=== PATIENT | male | born 1970 | race Hispanic/Latino ===

== ENCOUNTER 2020-11-01 08:34 | Outpatient (CLI) | payer BC, OTHER | END 2020-11-01 08:35 | disposition home or self-care (01) | LOC: CSHWCC 08:34 | PROVIDERS: ATTEND Nurse Practitioner Family | DX: E11.621 Type 2 diabetes mellitus with foot ulcer (principal); L97.518 Non-pressure chronic ulcer of other part of right foot with other specified severity | CPT/HCPCS: 36416; G0277 ==

== ENCOUNTER 2020-11-06 07:42 | Outpatient (CLI) | payer BC, OTHER | END 2020-11-06 07:43 | disposition home or self-care (01) | LOC: CSHWCC 07:42 | PROVIDERS: ATTEND Nurse Practitioner Family | DX: T81.89XD Other complications of procedures, not elsewhere classified, subsequent encounter (principal); E11.621 Type 2 diabetes mellitus with foot ulcer; L97.518 Non-pressure chronic ulcer of other part of right foot with other specified severity; E11.40 Type 2 diabetes mellitus with diabetic neuropathy, unspecified; E78.2 Mixed hyperlipidemia; I10 Essential (primary) hypertension; I70.203 Unspecified atherosclerosis of native arteries of extremities, bilateral legs; I87.2 Venous insufficiency (chronic) (peripheral); L03.818 Cellulitis of other sites; W45.8XXD Other foreign body or object entering through skin, subsequent encounter | CPT/HCPCS: 36416; 97605; 99213; G0277; G0463 ==

== ENCOUNTER 2020-11-13 09:51 | Outpatient (CLI) | payer BC, OTHER | END 2020-11-13 09:52 | disposition home or self-care (01) | LOC: CSHWCC 09:51 | PROVIDERS: ATTEND Nurse Practitioner Family | DX: E11.621 Type 2 diabetes mellitus with foot ulcer (principal); L97.518 Non-pressure chronic ulcer of other part of right foot with other specified severity | CPT/HCPCS: 36416; G0277 ==

== ENCOUNTER 2020-11-14 11:09 | Outpatient (CLI) | payer BC, OTHER | END 2020-11-14 11:10 | disposition home or self-care (01) | LOC: CSHWCC 11:09 | PROVIDERS: ATTEND Nurse Practitioner Family | DX: E11.621 Type 2 diabetes mellitus with foot ulcer (principal); L97.518 Non-pressure chronic ulcer of other part of right foot with other specified severity | CPT/HCPCS: 36416; G0277 ==

== ENCOUNTER 2020-11-19 08:07 | Outpatient (CLI) | payer BC, OTHER | END 2020-11-19 08:08 | disposition home or self-care (01) | LOC: CSHWCC 08:07 | PROVIDERS: ATTEND Nurse Practitioner Family | DX: E11.621 Type 2 diabetes mellitus with foot ulcer (principal); L97.518 Non-pressure chronic ulcer of other part of right foot with other specified severity | CPT/HCPCS: 11042; 11045; 36416; 97605; 99213; G0277; G0463 ==

== ENCOUNTER 2020-11-22 08:06 | Outpatient (CLI) | payer BC, OTHER | END 2020-11-22 08:07 | disposition home or self-care (01) | LOC: CSHWCC 08:06 | PROVIDERS: ATTEND Nurse Practitioner Family | DX: E11.621 Type 2 diabetes mellitus with foot ulcer (principal); L97.518 Non-pressure chronic ulcer of other part of right foot with other specified severity | CPT/HCPCS: 36416; 97605; 99213; G0277; G0463 ==

== ENCOUNTER 2020-11-26 07:55 | Outpatient (CLI) | payer BC, OTHER | END 2020-11-26 07:56 | disposition home or self-care (01) | LOC: CSHWCC 07:55 | PROVIDERS: ATTEND Nurse Practitioner Family | DX: T81.89XD Other complications of procedures, not elsewhere classified, subsequent encounter (principal); I87.2 Venous insufficiency (chronic) (peripheral); E11.621 Type 2 diabetes mellitus with foot ulcer; L97.518 Non-pressure chronic ulcer of other part of right foot with other specified severity; E11.40 Type 2 diabetes mellitus with diabetic neuropathy, unspecified; E11.51 Type 2 diabetes mellitus with diabetic peripheral angiopathy without gangrene; I70.203 Unspecified atherosclerosis of native arteries of extremities, bilateral legs; L03.818 Cellulitis of other sites; E78.2 Mixed hyperlipidemia; W45.8XXD Other foreign body or object entering through skin, subsequent encounter | CPT/HCPCS: 36416; 97605; 99213; G0277; G0463 ==

== ENCOUNTER 2020-11-27 08:17 | Outpatient (CLI) | payer BC, OTHER | END 2020-11-27 08:18 | disposition home or self-care (01) | LOC: CSHWCC 08:17 | PROVIDERS: ATTEND Nurse Practitioner Family | DX: E11.621 Type 2 diabetes mellitus with foot ulcer (principal); L97.518 Non-pressure chronic ulcer of other part of right foot with other specified severity | CPT/HCPCS: 36416; G0277 ==

== ENCOUNTER 2020-11-29 08:07 | Outpatient (CLI) | payer BC, OTHER | END 2020-11-29 08:08 | disposition home or self-care (01) | LOC: CSHWCC 08:07 | PROVIDERS: ATTEND Nurse Practitioner Family | DX: E11.621 Type 2 diabetes mellitus with foot ulcer (principal); L97.518 Non-pressure chronic ulcer of other part of right foot with other specified severity | CPT/HCPCS: 36416; 99213; G0277; G0463 ==

== ENCOUNTER 2020-11-30 08:14 | Outpatient (CLI) | payer BC, OTHER | END 2020-11-30 08:15 | disposition home or self-care (01) | LOC: CSHWCC 08:14 | PROVIDERS: ATTEND Nurse Practitioner Family | DX: T81.89XD Other complications of procedures, not elsewhere classified, subsequent encounter (principal); I87.2 Venous insufficiency (chronic) (peripheral); E11.621 Type 2 diabetes mellitus with foot ulcer; L97.518 Non-pressure chronic ulcer of other part of right foot with other specified severity; E11.51 Type 2 diabetes mellitus with diabetic peripheral angiopathy without gangrene; E11.40 Type 2 diabetes mellitus with diabetic neuropathy, unspecified; E78.2 Mixed hyperlipidemia; I70.203 Unspecified atherosclerosis of native arteries of extremities, bilateral legs; L03.818 Cellulitis of other sites; W45.8XXD Other foreign body or object entering through skin, subsequent encounter | CPT/HCPCS: 36416; G0277 ==

== ENCOUNTER 2020-12-04 09:42 | Outpatient (CLI) | payer BC, OTHER | END 2020-12-04 09:43 | disposition home or self-care (01) | LOC: CSHWCC 09:42 | PROVIDERS: ATTEND Nurse Practitioner Family | DX: E11.621 Type 2 diabetes mellitus with foot ulcer (principal); L97.518 Non-pressure chronic ulcer of other part of right foot with other specified severity | CPT/HCPCS: 36416; 99213; G0277; G0463 ==

== ENCOUNTER 2020-12-05 08:16 | Outpatient (CLI) | payer BC, OTHER | END 2020-12-05 08:17 | disposition home or self-care (01) | LOC: CSHWCC 08:16 | PROVIDERS: ATTEND Nurse Practitioner Family | DX: E11.621 Type 2 diabetes mellitus with foot ulcer (principal); L97.518 Non-pressure chronic ulcer of other part of right foot with other specified severity | CPT/HCPCS: 36416; G0277 ==

== ENCOUNTER 2020-12-06 10:09 | Outpatient (CLI) | payer BC, OTHER | END 2020-12-06 10:10 | disposition home or self-care (01) | LOC: CSHWCC 10:09 | PROVIDERS: ATTEND Nurse Practitioner Family | DX: E11.621 Type 2 diabetes mellitus with foot ulcer (principal); L97.518 Non-pressure chronic ulcer of other part of right foot with other specified severity | CPT/HCPCS: 36416; G0277 ==

== ENCOUNTER 2020-12-07 08:04 | Outpatient (CLI) | payer BC, OTHER | END 2020-12-07 08:05 | disposition home or self-care (01) | LOC: CSHWCC 08:04 | PROVIDERS: ATTEND Nurse Practitioner Family | DX: E11.621 Type 2 diabetes mellitus with foot ulcer (principal); L97.518 Non-pressure chronic ulcer of other part of right foot with other specified severity | CPT/HCPCS: 36416; 99213; G0277; G0463 ==

== ENCOUNTER 2020-12-10 08:13 | Outpatient (CLI) | payer BC, OTHER | END 2020-12-10 08:14 | disposition home or self-care (01) | LOC: CSHWCC 08:13 | PROVIDERS: ATTEND Nurse Practitioner Family | DX: E11.621 Type 2 diabetes mellitus with foot ulcer (principal); L97.518 Non-pressure chronic ulcer of other part of right foot with other specified severity | CPT/HCPCS: 36416; G0277 ==

== ENCOUNTER 2020-12-11 08:05 | Outpatient (CLI) | payer BC, OTHER | END 2020-12-11 08:06 | disposition home or self-care (01) | LOC: CSHWCC 08:05 | PROVIDERS: ATTEND Nurse Practitioner Family | DX: E11.621 Type 2 diabetes mellitus with foot ulcer (principal); L97.518 Non-pressure chronic ulcer of other part of right foot with other specified severity | CPT/HCPCS: 36416; G0277 ==

== ENCOUNTER 2020-12-12 11:04 | Outpatient (CLI) | payer BC, OTHER | END 2020-12-12 11:05 | disposition home or self-care (01) | LOC: CSHWCC 11:04 | PROVIDERS: ATTEND Nurse Practitioner Family | DX: E11.621 Type 2 diabetes mellitus with foot ulcer (principal); L97.518 Non-pressure chronic ulcer of other part of right foot with other specified severity | CPT/HCPCS: 36416; G0277 ==

== ENCOUNTER 2020-12-13 11:18 | Outpatient (CLI) | payer BC, OTHER | END 2020-12-13 11:19 | disposition home or self-care (01) | LOC: CSHWCC 11:18 | PROVIDERS: ATTEND Nurse Practitioner Family | DX: T81.89XD Other complications of procedures, not elsewhere classified, subsequent encounter (principal); E11.621 Type 2 diabetes mellitus with foot ulcer; L97.518 Non-pressure chronic ulcer of other part of right foot with other specified severity; E78.2 Mixed hyperlipidemia; E11.40 Type 2 diabetes mellitus with diabetic neuropathy, unspecified; I10 Essential (primary) hypertension; I70.203 Unspecified atherosclerosis of native arteries of extremities, bilateral legs; I87.2 Venous insufficiency (chronic) (peripheral); L03.818 Cellulitis of other sites; W45.8XXD Other foreign body or object entering through skin, subsequent encounter | CPT/HCPCS: 36416; 99213; G0277; G0463 ==

== ENCOUNTER 2020-12-24 13:00 | Outpatient (CLI) | payer BC, OTHER | END 2020-12-24 13:01 | disposition home or self-care (01) | LOC: CSHWCC 13:00 | PROVIDERS: ATTEND Nurse Practitioner Family | DX: T81.89XD Other complications of procedures, not elsewhere classified, subsequent encounter (principal); E11.621 Type 2 diabetes mellitus with foot ulcer; L97.518 Non-pressure chronic ulcer of other part of right foot with other specified severity; E78.2 Mixed hyperlipidemia; I10 Essential (primary) hypertension; I70.203 Unspecified atherosclerosis of native arteries of extremities, bilateral legs; I87.2 Venous insufficiency (chronic) (peripheral); L03.818 Cellulitis of other sites; W45.8XXD Other foreign body or object entering through skin, subsequent encounter | CPT/HCPCS: 97605; 99213; G0463 ==

== ENCOUNTER 2020-12-27 13:06 | Outpatient (CLI) | payer BC, OTHER | END 2020-12-27 13:07 | disposition home or self-care (01) | LOC: CSHWCC 13:06 | PROVIDERS: ATTEND Nurse Practitioner Family | DX: T81.89XA Other complications of procedures, not elsewhere classified, initial encounter (principal); E11.621 Type 2 diabetes mellitus with foot ulcer; L97.518 Non-pressure chronic ulcer of other part of right foot with other specified severity; E11.40 Type 2 diabetes mellitus with diabetic neuropathy, unspecified; E78.2 Mixed hyperlipidemia; I10 Essential (primary) hypertension; I70.203 Unspecified atherosclerosis of native arteries of extremities, bilateral legs; I87.2 Venous insufficiency (chronic) (peripheral); L03.818 Cellulitis of other sites; W45.8XXA Other foreign body or object entering through skin, initial encounter | CPT/HCPCS: 97605; 99213; G0463 ==

== ENCOUNTER 2020-12-31 09:53 | Outpatient (CLI) | payer BC, OTHER | END 2020-12-31 09:54 | disposition home or self-care (01) | LOC: CSHWCC 09:53 | PROVIDERS: ATTEND Nurse Practitioner Family | DX: E11.621 Type 2 diabetes mellitus with foot ulcer (principal); L97.518 Non-pressure chronic ulcer of other part of right foot with other specified severity; T81.89XA Other complications of procedures, not elsewhere classified, initial encounter; E11.40 Type 2 diabetes mellitus with diabetic neuropathy, unspecified; E78.2 Mixed hyperlipidemia; I10 Essential (primary) hypertension; I70.203 Unspecified atherosclerosis of native arteries of extremities, bilateral legs; I87.2 Venous insufficiency (chronic) (peripheral); L03.818 Cellulitis of other sites; W45.8XXA Other foreign body or object entering through skin, initial encounter | CPT/HCPCS: 11042; 36416; 97605; 99213; G0277; G0463 ==

== ENCOUNTER 2021-01-02 10:09 | Outpatient (CLI) | payer BC, OTHER | END 2021-01-02 10:10 | disposition home or self-care (01) | LOC: CSHWCC 10:09 | PROVIDERS: ATTEND Nurse Practitioner Family | DX: E11.621 Type 2 diabetes mellitus with foot ulcer (principal); L97.518 Non-pressure chronic ulcer of other part of right foot with other specified severity | CPT/HCPCS: 36416; G0277 ==

== ENCOUNTER 2021-01-03 09:40 | Outpatient (CLI) | payer BC, OTHER | END 2021-01-03 09:41 | disposition home or self-care (01) | LOC: CSHWCC 09:40 | PROVIDERS: ATTEND Nurse Practitioner Family | DX: T81.89XD Other complications of procedures, not elsewhere classified, subsequent encounter (principal); E11.621 Type 2 diabetes mellitus with foot ulcer; L97.518 Non-pressure chronic ulcer of other part of right foot with other specified severity; E11.40 Type 2 diabetes mellitus with diabetic neuropathy, unspecified; E78.2 Mixed hyperlipidemia; I10 Essential (primary) hypertension; I70.203 Unspecified atherosclerosis of native arteries of extremities, bilateral legs; I87.2 Venous insufficiency (chronic) (peripheral); L03.818 Cellulitis of other sites; W45.8XXD Other foreign body or object entering through skin, subsequent encounter | CPT/HCPCS: 36416; 97605; 99213; G0277; G0463 ==

== ENCOUNTER 2021-01-08 12:43 | Outpatient (CLI) | payer BC, OTHER | END 2021-01-08 12:44 | disposition home or self-care (01) | LOC: CSHWCC 12:43 | PROVIDERS: ATTEND Nurse Practitioner Family | DX: T81.89XD Other complications of procedures, not elsewhere classified, subsequent encounter (principal); E11.40 Type 2 diabetes mellitus with diabetic neuropathy, unspecified; E78.2 Mixed hyperlipidemia; I10 Essential (primary) hypertension; I70.203 Unspecified atherosclerosis of native arteries of extremities, bilateral legs; I87.2 Venous insufficiency (chronic) (peripheral); L03.818 Cellulitis of other sites; R60.0 Localized edema; T87.89 Other complications of amputation stump; W45.8XXS Other foreign body or object entering through skin, sequela | CPT/HCPCS: 36416; G0277 ==

== ENCOUNTER 2021-01-09 12:53 | Outpatient (CLI) | payer BC, OTHER | END 2021-01-09 12:54 | disposition home or self-care (01) | LOC: CSHWCC 12:53 | PROVIDERS: ATTEND Nurse Practitioner Family | DX: E11.621 Type 2 diabetes mellitus with foot ulcer (principal); L97.518 Non-pressure chronic ulcer of other part of right foot with other specified severity | CPT/HCPCS: 36416; G0277 ==

== ENCOUNTER 2021-01-10 08:06 | Outpatient (CLI) | payer BC, OTHER | END 2021-01-10 08:07 | disposition home or self-care (01) | LOC: CSHWCC 08:06 | PROVIDERS: ATTEND Nurse Practitioner Family | DX: I87.2 Venous insufficiency (chronic) (peripheral) (principal); E11.621 Type 2 diabetes mellitus with foot ulcer; L97.518 Non-pressure chronic ulcer of other part of right foot with other specified severity | CPT/HCPCS: 36416 ==

== ENCOUNTER 2021-01-22 15:40 | Outpatient (CLI) | payer BC, OTHER | END 2021-01-22 15:41 | disposition home or self-care (01) | LOC: CSHWCC 15:40 | PROVIDERS: ATTEND Nurse Practitioner Family | DX: T81.89XD Other complications of procedures, not elsewhere classified, subsequent encounter (principal); I87.2 Venous insufficiency (chronic) (peripheral); E11.621 Type 2 diabetes mellitus with foot ulcer; L97.518 Non-pressure chronic ulcer of other part of right foot with other specified severity; E11.40 Type 2 diabetes mellitus with diabetic neuropathy, unspecified; E78.2 Mixed hyperlipidemia; I70.203 Unspecified atherosclerosis of native arteries of extremities, bilateral legs; L03.818 Cellulitis of other sites; I10 Essential (primary) hypertension; W45.8XXD Other foreign body or object entering through skin, subsequent encounter | CPT/HCPCS: 97605; 99213; G0463 ==

== ENCOUNTER 2021-02-01 07:55 | Outpatient (CLI) | payer BC, OTHER | END 2021-02-01 07:56 | disposition home or self-care (01) | LOC: CSHWCC 07:55 | PROVIDERS: ATTEND Nurse Practitioner Family | DX: T81.89XD Other complications of procedures, not elsewhere classified, subsequent encounter (principal); E11.621 Type 2 diabetes mellitus with foot ulcer; L97.518 Non-pressure chronic ulcer of other part of right foot with other specified severity; E11.40 Type 2 diabetes mellitus with diabetic neuropathy, unspecified; E78.2 Mixed hyperlipidemia; I10 Essential (primary) hypertension; I70.203 Unspecified atherosclerosis of native arteries of extremities, bilateral legs; I87.2 Venous insufficiency (chronic) (peripheral); L03.818 Cellulitis of other sites; W45.8XXD Other foreign body or object entering through skin, subsequent encounter | CPT/HCPCS: 36416 ==

== ENCOUNTER 2021-02-12 08:32 | Outpatient (CLI) | payer BC, OTHER | END 2021-02-12 08:33 | disposition home or self-care (01) | LOC: CSHWCC 08:32 | PROVIDERS: ATTEND Nurse Practitioner Family | DX: T81.89XD Other complications of procedures, not elsewhere classified, subsequent encounter (principal); T88.8XXD Other specified complications of surgical and medical care, not elsewhere classified, subsequent encounter; E11.622 Type 2 diabetes mellitus with other skin ulcer; L98.499 Non-pressure chronic ulcer of skin of other sites with unspecified severity; E03.9 Hypothyroidism, unspecified; F32.9 Major depressive disorder, single episode, unspecified | CPT/HCPCS: 36416; G0277 ==

== ENCOUNTER 2021-02-19 08:23 | Outpatient (CLI) | payer BC, OTHER | END 2021-02-19 08:24 | disposition home or self-care (01) | LOC: CSHWCC 08:23 | PROVIDERS: ATTEND Nurse Practitioner Family | DX: E11.621 Type 2 diabetes mellitus with foot ulcer (principal); L97.518 Non-pressure chronic ulcer of other part of right foot with other specified severity | CPT/HCPCS: 36416; G0277 ==

== ENCOUNTER 2022-06-27 08:13 | Outpatient (CLI) | payer BC, MEDICARE | END 2022-06-27 08:14 | disposition home or self-care (01) | LOC: CSHWCC 08:13 | PROVIDERS: ATTEND Nurse Practitioner Family | DX: E11.621 Type 2 diabetes mellitus with foot ulcer (principal); L97.419 Non-pressure chronic ulcer of right heel and midfoot with unspecified severity | CPT/HCPCS: 11042; 87070; 87205; 97139; G0463; 99212 ==

== ENCOUNTER 2022-07-04 09:43 | Outpatient (CLI) | payer MEDICARE | END 2022-07-04 09:44 | disposition home or self-care (01) | LOC: CSHWCC 09:43 | PROVIDERS: ATTEND Nurse Practitioner Family | DX: E11.621 Type 2 diabetes mellitus with foot ulcer (principal); L97.419 Non-pressure chronic ulcer of right heel and midfoot with unspecified severity | CPT/HCPCS: 11043; 97605 ==

== ENCOUNTER 2022-07-08 10:33 | Outpatient (CLI) | payer MEDICARE | END 2022-07-08 10:34 | disposition home or self-care (01) | LOC: CSHWCC 10:33 | PROVIDERS: ATTEND Nurse Practitioner Family | DX: E11.621 Type 2 diabetes mellitus with foot ulcer (principal); L97.419 Non-pressure chronic ulcer of right heel and midfoot with unspecified severity | CPT/HCPCS: 11043; 97605 ==

== ENCOUNTER 2022-07-11 11:23 | Outpatient (CLI) | payer MEDICARE | END 2022-07-11 11:24 | disposition home or self-care (01) | LOC: CSHWCC 11:23 | PROVIDERS: ATTEND Nurse Practitioner Family | DX: E11.621 Type 2 diabetes mellitus with foot ulcer (principal); L97.412 Non-pressure chronic ulcer of right heel and midfoot with fat layer exposed | CPT/HCPCS: 97605 ==

== ENCOUNTER 2022-07-28 13:42 | Outpatient (CLI) | payer MEDICARE | END 2022-07-28 13:43 | disposition home or self-care (01) | LOC: CSHWCC 13:42 | PROVIDERS: ATTEND Nurse Practitioner Family | DX: E11.621 Type 2 diabetes mellitus with foot ulcer (principal); L97.412 Non-pressure chronic ulcer of right heel and midfoot with fat layer exposed | CPT/HCPCS: 11043 ==

== ENCOUNTER 2024-10-03 09:09 | Outpatient (CLI) | payer OTHER | END 2024-10-03 09:10 | disposition home or self-care (01) | LOC: CSHWCC 09:09 | PROVIDERS: ATTEND Nurse Practitioner Family | DX: E11.621 Type 2 diabetes mellitus with foot ulcer (principal); L97.512 Non-pressure chronic ulcer of other part of right foot with fat layer exposed; E11.22 Type 2 diabetes mellitus with diabetic chronic kidney disease; N18.6 End stage renal disease | CPT/HCPCS: 11042; 99213; G0463 ==